=== PATIENT | male | born 1955 | race African-American/Black ===

== ENCOUNTER 2019-12-19 11:55 | Inpatient (IN) ==
[2019-12-19 13:10] LABS: Basophils # 0.1 10*3/uL (0.0-0.2); Basophils % 0.6 % (0.0-0.8); Eosinophils # 0.1 10*3/uL (0.0-0.87); Eosinophils % 0.8 % (0.00-10.9); Hematocrit 32.7 VOL% (42.0-52.0); Hemoglobin 10.1 GM/DL (14.0-18.0); Immature Granulocytes % 0.6 %; Immature Granulocytes Absolute 0.07 #; Lymphocytes # 1.1 10*3/uL (1.4-4.0); Lymphocytes % 9.1 % (21.2-54.2); Mean Corpuscular HGB Conc 30.9 GM/DL (32-36); Mean Corpuscular Volume 90.3 FL (87-102); Mean Platelet Volume 10.2 FL (9.6-12.0); Monocytes % 8.3 % (1.7-12.7); Neutrophils % 80.6 % (38.7-73.9); Platelet Count 271 T/CUMM (130-400); Red Blood Count 3.62 MC/CUMM (3.8-5.5); Red Cell Distribution Width 15.8 % (9.3-17.3); White Blood Count 12.6 T/CUMM (4-12)
[2019-12-19 13:36] LABS: Albumin 3.5 G/DL (3.4-5.0); Bilirubin,Total 0.4 MG/DL (0.2-1.0); Calcium 8.9 MG/DL (8.5-10.1); Osmolality,Calculated 272.8 MOS/KG (273-304); Total Protein 9.7 G/DL (6.4-8.3)
[2019-12-19] MEDS ORDERED: BISACODYL 5 MG TABLET PO PRN (14:10)
[2019-12-19] MEDS ORDERED: guaiFENesin/DM ER 600-30 MG TABLET PO PRN (14:10)
[2019-12-19] MEDS ORDERED: DOCUSATE SODIUM 100 MG CAPSULE PO PRN (14:10)
[2019-12-19] MEDS ORDERED: DEXTROSE 50% 25 GM/50 ML VIAL IV PRN (14:10)
[2019-12-19] MEDS ORDERED: ACETAMINOPHEN 325 MG TABLET PO PRN (14:10)
[2019-12-19] MEDS ORDERED: GLUCAGON 1 MG VIAL IM PRN (14:10)
[2019-12-19] MEDS ORDERED: SIMETHICONE CHEW 125 MG TABLET PO PRN (14:10)
[2019-12-19] MEDS ORDERED: ONDANSETRON 4 MG/2 ML VIAL IV PRN (14:10)
[2019-12-19] MEDS ORDERED: CALCIUM CARBONATE CHEW 500 MG TABLET PO PRN (14:10)
[2019-12-19] MEDS ORDERED: ALUMINUM/MAGNES/SIMETH MAX STR 30 ML UDCUP PO PRN (14:10)
[2019-12-19] MEDS ORDERED: traZODone 50 MG TABLET PO PRN (14:10)
[2019-12-19] MEDS ORDERED: ZALEPLON 5 MG CAPSULE PO PRN (14:10)
[2019-12-19] MEDS ORDERED: LACTULOSE 20 GM/30 ML UDCUP PO PRN (14:10)
[2019-12-19] MEDS ORDERED: NICOTINE 21 MG/24 HR PATCH TRANSDERM PRN (14:10)
[2019-12-19] MEDS ORDERED: amLODIPine 5 MG TABLET PO STA ×2 (14:11→14:23)
[2019-12-19] MEDS ORDERED: amLODIPine 5 MG TABLET ONE (14:30)
[2019-12-19] MEDS ORDERED: CLINDAMYCIN INJ 50 ML IV ONE (14:31)
[2019-12-19] MEDS: CLINDAMYCIN INJ 600 MG in PREMIX 1 EACH IV SCH ×2 (15:04→20:45)
[2019-12-19] MEDS: ACYCLOVIR INJ 500 MG in SODIUM CHLORIDE 0.9% 100 ML IV SCH (16:57)
[2019-12-19] MEDS: SODIUM CHLORIDE 0.45% 1,000 ML IV SCH (16:57)
[2019-12-19] MEDS: hydrALAZINE 20 MG/1 ML VIAL IV PRN (16:59)
[2019-12-19 18:02] LABS: HIV Antigen/Antibody Result Nonreactive (Nonreactive)
[2019-12-19 18:05] LABS: Hepatitis B Core IgM Quant 0.15 Index; Hepatitis B Surface Ag Quant 0.31 Index; Hepatitis B Surface Ag Result Negative (Negative); Hepatitis C Virus Ab Quant 0.07 Index; Hepatitis C Virus Ab Result Negative (Negative)
[2019-12-19 19:36] LABS: Barbiturates Screen,Urine Negative (Negative); Benzodiazepines Screen,Urine Negative (Negative); Cannabinoid Screen,Urine Positive (Negative); Opiate Screen,Urine Negative (Negative); Phencyclidine Screen,Urine Negative (Negative)
[2019-12-19] MEDS: HEPARIN 5,000 UNIT/1 ML VIAL SUBCUT SCH (21:40)
[2019-12-20] MEDS: ACYCLOVIR INJ 500 MG in SODIUM CHLORIDE 0.9% 100 ML IV SCH ×3 (00:02→18:11)
[2019-12-20] MEDS: CLINDAMYCIN INJ 600 MG in PREMIX 1 EACH IV SCH ×4 (02:57→22:17)
[2019-12-20 05:33] LABS: Basophils # 0.1 10*3/uL (0.0-0.2); Basophils % 0.5 % (0.0-0.8); Eosinophils # 0.3 10*3/uL (0.0-0.87); Eosinophils % 2.3 % (0.00-10.9); Hematocrit 28.3 VOL% (42.0-52.0); Immature Granulocytes % 0.7 %; Immature Granulocytes Absolute 0.08 #; Lymphocytes # 1.4 10*3/uL (1.4-4.0); Lymphocytes % 12.3 % (21.2-54.2); Mean Corpuscular HGB Conc 31.8 GM/DL (32-36); Mean Corpuscular Volume 87.9 FL (87-102); Mean Platelet Volume 10.9 FL (9.6-12.0); Monocytes % 14.4 % (1.7-12.7); Neutrophils % 69.8 % (38.7-73.9); Platelet Count 221 T/CUMM (130-400); Red Blood Count 3.22 MC/CUMM (3.8-5.5); Red Cell Distribution Width 15.7 % (9.3-17.3); White Blood Count 11.1 T/CUMM (4-12)
[2019-12-20] MEDS: hydrALAZINE 20 MG/1 ML VIAL IV PRN (05:34)
[2019-12-20] MEDS: HEPARIN 5,000 UNIT/1 ML VIAL SUBCUT SCH ×3 (05:35→22:18)
[2019-12-20 06:04] LABS: Alanine Aminotransferase 13 U/L (16-61); Albumin 2.8 G/DL (3.4-5.0); Alkaline Phosphatase 103 U/L (45-117); Aspartate Amino Transferase 17 U/L (0-37); Bilirubin,Total < 0.39 MG/DL (0.2-1.0); Blood Urea Nitrogen 21 MG/DL (7-18); Calcium 8.3 MG/DL (8.5-10.1); Estimated Glom Filtration Rate 55 ML/MIN; Glucose 85 MG/DL (74-106); Osmolality,Calculated 271.1 MOS/KG (273-304)
[2019-12-20 06:05] LABS: Risk Ratio 1.59; VLDL CHOLESTEROL 18.2 MG/DL
[2019-12-20] MEDS: SODIUM CHLORIDE 0.45% 1,000 ML IV SCH ×3 (06:30→22:15)
[2019-12-20] MEDS ORDERED: amLODIPine 5 MG TABLET PO SCH (09:00)
[2019-12-20] MEDS ORDERED: amLODIPine 10 MG TABLET PO SCH (09:00)
[2019-12-20] MEDS: PANTOPRAZOLE 40 MG TABLET PO SCH (09:22)
[2019-12-20] MEDS: LISINOPRIL/HCTZ 20-12.5 MG TABLET PO SCH (09:22)
[2019-12-20] MEDS: diphenhydrAMINE CAP 25 MG CAPSULE PO PRN (22:17)
[2019-12-21] MEDS: CLINDAMYCIN INJ 600 MG in PREMIX 1 EACH IV SCH ×4 (02:05→21:18)
[2019-12-21] MEDS: ACYCLOVIR INJ 500 MG in SODIUM CHLORIDE 0.9% 100 ML IV SCH ×3 (02:58→17:49)
[2019-12-21 05:17] LABS: Basophils % 0.4 % (0.0-0.8); Eosinophils # 0.3 10*3/uL (0.0-0.87); Eosinophils % 2.7 % (0.00-10.9); Hemoglobin 8.6 GM/DL (14.0-18.0); Immature Granulocytes % 0.5 %; Immature Granulocytes Absolute 0.05 #; Lymphocytes # 1.6 10*3/uL (1.4-4.0); Lymphocytes % 15.9 % (21.2-54.2); Mean Corpuscular HGB Conc 31.9 GM/DL (32-36); Mean Corpuscular Volume 87.9 FL (87-102); Mean Platelet Volume 10.3 FL (9.6-12.0); Monocytes % 13.9 % (1.7-12.7); Neutrophils % 66.6 % (38.7-73.9); Platelet Count 225 T/CUMM (130-400); Red Blood Count 3.07 MC/CUMM (3.8-5.5); Red Cell Distribution Width 15.6 % (9.3-17.3); White Blood Count 9.8 T/CUMM (4-12)
[2019-12-21 05:40] LABS: Albumin 2.8 G/DL (3.4-5.0); Bilirubin,Total 1.6 MG/DL (0.2-1.0); Calcium 8.2 MG/DL (8.5-10.1); Osmolality,Calculated 271.1 MOS/KG (273-304); Total Protein 7.8 G/DL (6.4-8.3)
[2019-12-21] MEDS: HEPARIN 5,000 UNIT/1 ML VIAL SUBCUT SCH ×3 (06:12→21:21)
[2019-12-21] MEDS: PANTOPRAZOLE 40 MG TABLET PO SCH (09:12)
[2019-12-21] MEDS: LISINOPRIL/HCTZ 20-12.5 MG TABLET PO SCH (09:12)
[2019-12-21] MEDS: SODIUM CHLORIDE 0.45% 1,000 ML IV SCH (12:26)
[2019-12-22] MEDS: diphenhydrAMINE CAP 25 MG CAPSULE PO PRN (00:57)
[2019-12-22] MEDS: SODIUM CHLORIDE 0.45% 1,000 ML IV SCH (02:00)
[2019-12-22] MEDS: CLINDAMYCIN INJ 600 MG in PREMIX 1 EACH IV SCH ×2 (03:34→12:47)
[2019-12-22] MEDS: ACYCLOVIR INJ 500 MG in SODIUM CHLORIDE 0.9% 100 ML IV SCH (04:30)
[2019-12-22 05:46] LABS: Basophils % 0.3 % (0.0-0.8); Eosinophils # 0.3 10*3/uL (0.0-0.87); Eosinophils % 2.9 % (0.00-10.9); Hematocrit 30.5 VOL% (42.0-52.0); Hemoglobin 9.9 GM/DL (14.0-18.0); Immature Granulocytes % 0.7 %; Immature Granulocytes Absolute 0.06 #; Lymphocytes # 1.6 10*3/uL (1.4-4.0); Lymphocytes % 18.9 % (21.2-54.2); Mean Corpuscular HGB Conc 32.5 GM/DL (32-36); Mean Corpuscular Volume 86.6 FL (87-102); Mean Platelet Volume 9.9 FL (9.6-12.0); Monocytes % 11.6 % (1.7-12.7); Neutrophils % 65.6 % (38.7-73.9); Platelet Count 246 T/CUMM (130-400); Red Blood Count 3.52 MC/CUMM (3.8-5.5); Red Cell Distribution Width 15.8 % (9.3-17.3); White Blood Count 8.7 T/CUMM (4-12)
[2019-12-22 06:06] LABS: Calcium 8.7 MG/DL (8.5-10.1)
[2019-12-22 06:07] LABS: Albumin 3.1 G/DL (3.4-5.0); Bilirubin,Total 0.6 MG/DL (0.2-1.0); Osmolality,Calculated 269.1 MOS/KG (273-304); Total Protein 8.7 G/DL (6.4-8.3)
[2019-12-22] MEDS: HEPARIN 5,000 UNIT/1 ML VIAL SUBCUT SCH (06:42)
[2019-12-22] MEDS: PANTOPRAZOLE 40 MG TABLET PO SCH (09:27)
[2019-12-22] MEDS: LISINOPRIL/HCTZ 20-12.5 MG TABLET PO SCH (09:28)
[2019-12-22 09:51] LABS: RPR Confirm - Less than 1 yr NONREACTIVE (Nonreactive)
[2019-12-22 11:28] VITALS: BP 154/97
== END 2019-12-22 12:08 | disposition home or self-care (01) | DRG 603 ==
LOC: N.ED 11:55 → N.EDINP 14:32 → SUATTDRO 14:32 → N.3E 15:25
PROVIDERS: ADMIT Family Medicine; ATTEND Internal Medicine

== ENCOUNTER 2020-08-16 09:28 | Inpatient (IN) ==
[2020-08-16] MEDS ORDERED: CLINDAMYCIN INJ 900 MG in PREMIX 1 EACH IV STA (11:36)
[2020-08-16] MEDS ORDERED: CLINDAMYCIN INJ 600 MG in PREMIX 1 EACH IV STA (11:37)
[2020-08-16 11:40] LABS: Basophils # 0.1 10*3/uL (0.0-0.2); Basophils % 0.7 % (0.0-0.8); Eosinophils # 0.3 10*3/uL (0.0-0.87); Eosinophils % 2.2 % (0.00-10.9); Hematocrit 36.1 VOL% (42.0-52.0); Hemoglobin 11.2 GM/DL (14.0-18.0); Immature Granulocytes % 0.4 %; Immature Granulocytes Absolute 0.05 #; Lymphocytes % 8.6 % (21.2-54.2); Mean Corpuscular Volume 91.9 FL (87-102); Mean Platelet Volume 11.6 FL (9.6-12.0); Monocytes % 9.9 % (1.7-12.7); Neutrophils % 78.2 % (38.7-73.9); Platelet Count 240 T/CUMM (130-400); Red Blood Count 3.93 MC/CUMM (3.8-5.5); Red Cell Distribution Width 18.9 % (9.3-17.3); White Blood Count 11.2 T/CUMM (4-12)
[2020-08-16 11:57] LABS: Hypochromasia 1+
[2020-08-16 11:58] LABS: Anisocytosis 1+; Microcytosis 1+; Platelet Estimate Normal
[2020-08-16 12:03] LABS: Bilirubin,Total 1.1 MG/DL (0.2-1.0); Calcium 8.8 MG/DL (8.5-10.1); Potassium 4.1 MMOL/L (3.5-5.1); Total Protein 9.4 G/DL (5.0-7.5)
[2020-08-16] MEDS ORDERED: GLUCAGON 1 MG VIAL IM PRN (12:37)
[2020-08-16] MEDS ORDERED: LORazepam 2 MG/1 ML VIAL IV PRN (12:37)
[2020-08-16] MEDS ORDERED: NICOTINE 21 MG/24 HR PATCH TRANSDERM PRN (12:37)
[2020-08-16] MEDS ORDERED: DEXTROSE 50% 25 GM/50 ML VIAL IV PRN (12:37)
[2020-08-16] MEDS ORDERED: cefTRIAXone 1,000 MG in SYRINGE 1 EACH IV SCH (13:00)
[2020-08-16] MEDS: SODIUM CHLORIDE 0.9% 1,000 ML IV SCH (13:19)
[2020-08-16] MEDS: amLODIPine 10 MG TABLET PO SCH (13:51)
[2020-08-16] MEDS: oxyCODONE/ACETAMINOPHEN 5-325 MG TABLET PO PRN (15:46)
[2020-08-16] MEDS: hydrALAZINE 20 MG/1 ML VIAL IV PRN (15:48)
[2020-08-16] MEDS: MORPHINE 4 MG/1 ML VIAL IV PRN (18:21)
[2020-08-17] MEDS: MORPHINE 4 MG/1 ML VIAL IV PRN (02:44)
[2020-08-17 03:57] LABS: Basophils # 0.1 10*3/uL (0.0-0.2); Basophils % 0.6 % (0.0-0.8); Eosinophils # 0.5 10*3/uL (0.0-0.87); Eosinophils % 4.6 % (0.00-10.9); Hematocrit 29.6 VOL% (42.0-52.0); Hemoglobin 9.3 GM/DL (14.0-18.0); Immature Granulocytes % 0.4 %; Immature Granulocytes Absolute 0.04 #; Lymphocytes # 0.9 10*3/uL (1.4-4.0); Lymphocytes % 9.3 % (21.2-54.2); Mean Corpuscular HGB Conc 31.4 GM/DL (32-36); Monocytes % 12.4 % (1.7-12.7); Neutrophils % 72.7 % (38.7-73.9); Platelet Count 228 T/CUMM (130-400); Red Blood Count 3.29 MC/CUMM (3.8-5.5); Red Cell Distribution Width 19.1 % (9.3-17.3); White Blood Count 10.1 T/CUMM (4-12)
[2020-08-17 04:18] LABS: Albumin 2.4 G/DL (3.4-5.0); Bilirubin,Total 0.9 MG/DL (0.2-1.0); Osmolality,Calculated 277.7 MOS/KG (273-304); Potassium 3.8 MMOL/L (3.5-5.1); Total Protein 7.4 G/DL (5.0-7.5)
[2020-08-17] MEDS: SODIUM CHLORIDE 0.9% 1,000 ML IV SCH ×2 (05:37→17:24)
[2020-08-17] MEDS: MULTIVITAMIN (CENTRUM) TABLET PO SCH (09:45)
[2020-08-17] MEDS: PANTOPRAZOLE 40 MG TABLET PO SCH (09:45)
[2020-08-17] MEDS: FOLIC ACID 0.4 MG TABLET PO SCH (09:45)
[2020-08-17] MEDS: amLODIPine 10 MG TABLET PO SCH (09:46)
[2020-08-17] MEDS: THIAMINE 100 MG TABLET PO SCH (09:46)
[2020-08-17] MEDS: oxyCODONE/ACETAMINOPHEN 5-325 MG TABLET PO PRN ×3 (09:46→23:35)
[2020-08-17] MEDS: hydrALAZINE 20 MG/1 ML VIAL IV PRN ×2 (09:49→17:24)
[2020-08-17] MEDS: ceFAZolin 1,000 MG in SYRINGE 1 EACH IV SCH ×2 (09:58→17:22)
[2020-08-17] MEDS: carvediloL 6.25 MG TABLET PO SCH ×2 (13:46→20:47)
[2020-08-18] MEDS: ceFAZolin 1,000 MG in SYRINGE 1 EACH IV SCH ×3 (02:15→17:24)
[2020-08-18] MEDS: hydrALAZINE 20 MG/1 ML VIAL IV PRN ×2 (02:17→23:56)
[2020-08-18] MEDS: SODIUM CHLORIDE 0.9% 1,000 ML IV SCH ×2 (06:07→18:01)
[2020-08-18 06:16] LABS: Basophils # 0.1 10*3/uL (0.0-0.2); Basophils % 0.5 % (0.0-0.8); Eosinophils # 0.6 10*3/uL (0.0-0.87); Eosinophils % 6.1 % (0.00-10.9); Hemoglobin 8.5 GM/DL (14.0-18.0); Immature Granulocytes % 0.6 %; Immature Granulocytes Absolute 0.06 #; Lymphocytes # 1.3 10*3/uL (1.4-4.0); Lymphocytes % 13.2 % (21.2-54.2); Mean Corpuscular HGB Conc 31.5 GM/DL (32-36); Mean Platelet Volume 11.1 FL (9.6-12.0); Monocytes % 16.6 % (1.7-12.7); Platelet Count 215 T/CUMM (130-400); Red Cell Distribution Width 19.5 % (9.3-17.3); White Blood Count 10.1 T/CUMM (4-12)
[2020-08-18 06:18] LABS: Total Protein (Chem) 7.5 G/DL (6.4-8.3)
[2020-08-18 06:22] LABS: Albumin 2.3 G/DL (3.4-5.0); Bilirubin,Total 0.5 MG/DL (0.2-1.0); Osmolality,Calculated 278.4 MOS/KG (273-304); Total Protein 7.1 G/DL (5.0-7.5)
[2020-08-18 06:42] LABS: Eosinophils 7 % (0-10); Hypochromasia 1+; Lymphocytes 11 % (20-55); Microcytosis 1+; Platelet Estimate Adequate; Segmented Neutrophils 70 % (50-85); Total Cells Counted 100
[2020-08-18 08:32] LABS: Albumin (SPE) Rel % 48.5 %; Alpha 1 (SPE) Rel % 3.1 %; Alpha 2 (SPE) Rel % 10.1 %; Beta (SPE) Rel % 10.2 %; Gamma (SPE) Rel % 28.1 %
[2020-08-18 08:42] LABS: Albumin (SPE) 3.6 G/DL (3.2-5.3); Alpha 1 (SPE) 0.2 G/DL (0.1-0.4)
[2020-08-18 08:43] LABS: Alpha 2 (SPE) 0.8 G/DL (0.4-1.0); Beta (SPE) 0.8 G/DL (0.5-1.1); Gamma (SPE) 2.1 G/DL (0.7-1.7)
[2020-08-18 08:58] LABS: % Iron Saturation 5.9 % (18-50)
[2020-08-18 09:01] LABS: INR 1.1; PT Patient Result 11.9 SECS (9.8-11.9); Partial Thromboplastin Time 30.8 SECS (23.9-33.8)
[2020-08-18] MEDS: FOLIC ACID 0.4 MG TABLET PO SCH (09:07)
[2020-08-18] MEDS: THIAMINE 100 MG TABLET PO SCH (09:07)
[2020-08-18] MEDS: PANTOPRAZOLE 40 MG TABLET PO SCH (09:09)
[2020-08-18] MEDS: carvediloL 6.25 MG TABLET PO SCH ×2 (09:09→21:14)
[2020-08-18] MEDS: amLODIPine 10 MG TABLET PO SCH (09:09)
[2020-08-18] MEDS: MULTIVITAMIN (CENTRUM) TABLET PO SCH (09:10)
[2020-08-18 09:22] LABS: RPR Confirm - Less than 1 yr NONREACTIVE (Nonreactive)
[2020-08-18 09:27] LABS: Folate 14.8 NG/ML (5.38-24.0)
[2020-08-18 10:01] LABS: Hepatitis B Core IgM Quant < 0.05 Index; Hepatitis B Surface Ag Quant < 0.10 Index; Hepatitis B Surface Ag Result Non-Reactive (NonReactive); Hepatitis C Virus Ab Quant 0.19 Index; Hepatitis C Virus Ab Result Non-Reactive (NonReactive)
[2020-08-18 12:36] LABS: Barbiturates Screen,Urine Negative (Negative); Benzodiazepines Screen,Urine Negative (Negative); Cannabinoid Screen,Urine Positive (Negative); Opiate Screen,Urine Positive (Negative); Phencyclidine Screen,Urine Negative (Negative)
[2020-08-18 14:14] LABS: Total Volume,Urine 1600 ML (400-2000)
[2020-08-18 14:18] LABS: Total Protein 24 Hr Ur Result 928 MG/24HR (0-149.1)
[2020-08-18] MEDS: FERROUS SULFATE 325 MG TABLET PO SCH (21:14)
[2020-08-18] MEDS: oxyCODONE/ACETAMINOPHEN 5-325 MG TABLET PO PRN (21:22)
[2020-08-19] MEDS: MORPHINE 4 MG/1 ML VIAL IV PRN (01:41)
[2020-08-19] MEDS: ceFAZolin 1,000 MG in SYRINGE 1 EACH IV SCH ×3 (03:00→17:06)
[2020-08-19 06:14] LABS: Basophils # 0.1 10*3/uL (0.0-0.2); Basophils % 0.8 % (0.0-0.8); Eosinophils # 0.5 10*3/uL (0.0-0.87); Hematocrit 27.1 VOL% (42.0-52.0); Hemoglobin 8.5 GM/DL (14.0-18.0); Immature Granulocytes % 0.4 %; Immature Granulocytes Absolute 0.04 #; Lymphocytes # 1.3 10*3/uL (1.4-4.0); Lymphocytes % 15.1 % (21.2-54.2); Mean Corpuscular HGB Conc 31.4 GM/DL (32-36); Mean Platelet Volume 11.2 FL (9.6-12.0); Monocytes % 16.1 % (1.7-12.7); Neutrophils % 61.6 % (38.7-73.9); Platelet Count 233 T/CUMM (130-400); Red Blood Count 3.01 MC/CUMM (3.8-5.5); Red Cell Distribution Width 19.1 % (9.3-17.3); White Blood Count 8.9 T/CUMM (4-12)
[2020-08-19 06:17] LABS: INR 1.1; PT Patient Result 11.4 SECS (9.8-11.9)
[2020-08-19 06:24] LABS: 24 Hr Protein (Bench) 928 MG/24HR (0-149.1)
[2020-08-19 06:33] LABS: Albumin 2.4 G/DL (3.4-5.0); Bilirubin,Total 0.6 MG/DL (0.2-1.0); Calcium 8.4 MG/DL (8.5-10.1); Osmolality,Calculated 269.8 MOS/KG (273-304); Potassium 3.4 MMOL/L (3.5-5.1); Total Protein 7.5 G/DL (5.0-7.5)
[2020-08-19 06:42] LABS: Eosinophils 8 % (0-10); Lymphocytes 14 % (20-55); Platelet Estimate Adequate; Segmented Neutrophils 66 % (50-85); Total Cells Counted 100
[2020-08-19 06:43] LABS: Hypochromasia 1+; Microcytosis 1+
[2020-08-19] MEDS: amLODIPine 10 MG TABLET PO SCH (08:26)
[2020-08-19] MEDS: PANTOPRAZOLE 40 MG TABLET PO SCH (08:26)
[2020-08-19] MEDS: FOLIC ACID 0.4 MG TABLET PO SCH (08:26)
[2020-08-19] MEDS: carvediloL 6.25 MG TABLET PO SCH ×2 (08:26→21:07)
[2020-08-19] MEDS: FERROUS SULFATE 325 MG TABLET PO SCH ×2 (08:26→21:06)
[2020-08-19] MEDS: THIAMINE 100 MG TABLET PO SCH (08:26)
[2020-08-19] MEDS: MULTIVITAMIN (CENTRUM) TABLET PO SCH (08:27)
[2020-08-19] MEDS: SODIUM CHLORIDE 0.9% 1,000 ML IV SCH (09:37)
[2020-08-19] MEDS: POTASSIUM CHLORIDE 20 MEQ TABLET PO PRN ×3 (09:38→13:36)
[2020-08-19] MEDS: ceFAZolin 1,000 MG in SYRINGE 1 EACH IV ONE (09:39)
[2020-08-19] MEDS: oxyCODONE/ACETAMINOPHEN 5-325 MG TABLET PO PRN (21:07)
[2020-08-20] MEDS: ceFAZolin 1,000 MG in SYRINGE 1 EACH IV SCH ×3 (02:47→17:41)
[2020-08-20] MEDS: SODIUM CHLORIDE 0.9% 1,000 ML IV SCH ×3 (02:48→23:16)
[2020-08-20 04:16] LABS: Basophils # 0.1 10*3/uL (0.0-0.2); Basophils % 0.8 % (0.0-0.8); Eosinophils # 0.5 10*3/uL (0.0-0.87); Eosinophils % 6.7 % (0.00-10.9); Hematocrit 26.7 VOL% (42.0-52.0); Hemoglobin 8.4 GM/DL (14.0-18.0); Immature Granulocytes % 0.5 %; Immature Granulocytes Absolute 0.04 #; Lymphocytes # 1.6 10*3/uL (1.4-4.0); Lymphocytes % 21.5 % (21.2-54.2); Mean Corpuscular HGB Conc 31.5 GM/DL (32-36); Mean Corpuscular Volume 89.3 FL (87-102); Mean Platelet Volume 11.1 FL (9.6-12.0); Monocytes % 19.9 % (1.7-12.7); Neutrophils % 50.6 % (38.7-73.9); Platelet Count 226 T/CUMM (130-400); Red Blood Count 2.99 MC/CUMM (3.8-5.5); Red Cell Distribution Width 18.6 % (9.3-17.3); White Blood Count 7.5 T/CUMM (4-12)
[2020-08-20 04:43] LABS: Albumin 2.5 G/DL (3.4-5.0); Bilirubin,Total 0.6 MG/DL (0.2-1.0); Calcium 8.5 MG/DL (8.5-10.1); Osmolality,Calculated 277.4 MOS/KG (273-304); Total Protein 7.4 G/DL (5.0-7.5)
[2020-08-20 05:21] LABS: Eosinophils 5 % (0-10); Hypochromasia 1+; Lymphocytes 25 % (20-55); Microcytosis 1+; Segmented Neutrophils 52 % (50-85); Total Cells Counted 100
[2020-08-20 05:22] LABS: Anisocytosis 1+; Target Cells Slight
[2020-08-20] MEDS: carvediloL 6.25 MG TABLET PO SCH ×3 (06:10→21:13)
[2020-08-20] MEDS ORDERED: LIDOCAINE 1% 20 ML VIAL ONE (06:15)
[2020-08-20] MEDS ORDERED: ROPIVACAINE 0.5% 30 ML VIAL ONE (06:15)
[2020-08-20] MEDS ORDERED: BACITRACIN OINT 0.9 GM PACK TOP ONE (06:15)
[2020-08-20] MEDS ORDERED: fentaNYL 100 MCG/2 ML VIAL ONE (06:30)
[2020-08-20] MEDS ORDERED: LIDOCAINE 2% 5 ML VIAL ONE (06:31)
[2020-08-20] MEDS ORDERED: propofoL 200 MG/20 ML VIAL IV ONE (06:31)
[2020-08-20] MEDS ORDERED: ONDANSETRON 4 MG/2 ML VIAL ONE (06:31)
[2020-08-20] MEDS ORDERED: MIDAZOLAM 2 MG/2 ML VIAL ONE (06:45)
[2020-08-20] MEDS ORDERED: ceFAZolin 1,000 MG in SYRINGE 1 EACH IV ONE (07:30)
[2020-08-20] MEDS: ceFAZolin 1,000 MG in SYRINGE 1 EACH IV ONE (08:31)
[2020-08-20] MEDS: FOLIC ACID 0.4 MG TABLET PO SCH (10:36)
[2020-08-20] MEDS: THIAMINE 100 MG TABLET PO SCH (10:36)
[2020-08-20] MEDS: PANTOPRAZOLE 40 MG TABLET PO SCH (10:36)
[2020-08-20] MEDS: FERROUS SULFATE 325 MG TABLET PO SCH ×2 (10:36→21:13)
[2020-08-20] MEDS: MULTIVITAMIN (CENTRUM) TABLET PO SCH (10:37)
[2020-08-20] MEDS: amLODIPine 10 MG TABLET PO SCH (10:37)
[2020-08-20 11:24] LABS: EBV Nuclear Ag Antibody Positive (Negative); EBV Virus IgG Ab Positive (Negative); EBV Virus IgM Ab Negative (Negative); Varicella IgG Index 1.3
[2020-08-20 13:06] LABS: Smooth Muscle Antibody Negative (Negative)
[2020-08-20] MEDS: oxyCODONE/ACETAMINOPHEN 5-325 MG TABLET PO PRN ×2 (14:33→21:13)
[2020-08-21] MEDS: ceFAZolin 1,000 MG in SYRINGE 1 EACH IV SCH ×3 (03:01→17:14)
[2020-08-21 05:43] LABS: Basophils # 0.1 10*3/uL (0.0-0.2); Basophils % 0.6 % (0.0-0.8); Eosinophils # 0.6 10*3/uL (0.0-0.87); Hemoglobin 8.3 GM/DL (14.0-18.0); Immature Granulocytes % 0.4 %; Immature Granulocytes Absolute 0.03 #; Lymphocytes # 1.6 10*3/uL (1.4-4.0); Lymphocytes % 19.6 % (21.2-54.2); Mean Corpuscular HGB Conc 31.9 GM/DL (32-36); Mean Platelet Volume 10.1 FL (9.6-12.0); Monocytes % 15.3 % (1.7-12.7); Neutrophils % 57.1 % (38.7-73.9); Platelet Count 204 T/CUMM (130-400); Red Blood Count 2.92 MC/CUMM (3.8-5.5); Red Cell Distribution Width 18.6 % (9.3-17.3)
[2020-08-21 05:59] LABS: Albumin 2.5 G/DL (3.4-5.0); Bilirubin,Direct 0.22 MG/DL (0.0-0.20); Bilirubin,Indirect 0.2 MG/DL (0.0-1.0); Bilirubin,Total 0.4 MG/DL (0.2-1.0); Total Protein 7.6 G/DL (5.0-7.5)
[2020-08-21 06:05] LABS: Hypochromasia 1+; Microcytosis 1+; Platelet Estimate Adequate
[2020-08-21 06:11] LABS: Calcium 8.3 MG/DL (8.5-10.1); Osmolality,Calculated 270.8 MOS/KG (273-304); Potassium 3.7 MMOL/L (3.5-5.1)
[2020-08-21] MEDS: FOLIC ACID 0.4 MG TABLET PO SCH (10:47)
[2020-08-21] MEDS: PANTOPRAZOLE 40 MG TABLET PO SCH (10:48)
[2020-08-21] MEDS: THIAMINE 100 MG TABLET PO SCH (10:48)
[2020-08-21] MEDS: FERROUS SULFATE 325 MG TABLET PO SCH ×2 (10:48→20:53)
[2020-08-21] MEDS: carvediloL 6.25 MG TABLET PO SCH ×2 (10:48→20:53)
[2020-08-21] MEDS: MULTIVITAMIN (CENTRUM) TABLET PO SCH (10:48)
[2020-08-21] MEDS: amLODIPine 10 MG TABLET PO SCH (10:48)
[2020-08-21] MEDS: oxyCODONE/ACETAMINOPHEN 5-325 MG TABLET PO PRN ×2 (14:59→20:54)
[2020-08-21] MEDS: SODIUM CHLORIDE 0.9% 1,000 ML IV SCH (15:00)
[2020-08-21] MEDS: hydrALAZINE 20 MG/1 ML VIAL IV PRN (19:14)
[2020-08-22] MEDS: ceFAZolin 1,000 MG in SYRINGE 1 EACH IV SCH (02:55)
[2020-08-22] MEDS: SODIUM CHLORIDE 0.9% 1,000 ML IV SCH ×2 (03:00→15:25)
[2020-08-22] MEDS ORDERED: carvediloL 6.25 MG TABLET PO ONE (10:20)
[2020-08-22] MEDS: amLODIPine 10 MG TABLET PO SCH (10:47)
[2020-08-22] MEDS: MULTIVITAMIN (CENTRUM) TABLET PO SCH (10:47)
[2020-08-22] MEDS: THIAMINE 100 MG TABLET PO SCH (10:47)
[2020-08-22] MEDS: PANTOPRAZOLE 40 MG TABLET PO SCH (10:47)
[2020-08-22] MEDS: FERROUS SULFATE 325 MG TABLET PO SCH ×2 (10:47→20:33)
[2020-08-22] MEDS: FOLIC ACID 0.4 MG TABLET PO SCH (10:47)
[2020-08-22] MEDS: ERTAPENEM 1,000 MG in SODIUM CHLORIDE 0.9% 100 ML IV SCH (10:50)
[2020-08-22] MEDS: hydrALAZINE 20 MG/1 ML VIAL IV PRN (10:50)
[2020-08-22] MEDS: LOSARTAN 25 MG TABLET PO SCH (10:51)
[2020-08-22] MEDS: oxyCODONE/ACETAMINOPHEN 5-325 MG TABLET PO PRN ×2 (10:57→20:34)
[2020-08-22 11:21] LABS: Antinuclear Ab, S 0.2 U
[2020-08-22] MEDS: carvediloL 6.25 MG TABLET PO SCH (11:26)
[2020-08-22] MEDS: carvediloL 12.5 MG TABLET PO SCH (20:33)
[2020-08-23] MEDS: SODIUM CHLORIDE 0.9% 1,000 ML IV SCH ×2 (04:47→17:52)
[2020-08-23 05:03] LABS: Basophils # 0.1 10*3/uL (0.0-0.2); Basophils % 0.8 % (0.0-0.8); Eosinophils # 0.5 10*3/uL (0.0-0.87); Eosinophils % 5.7 % (0.00-10.9); Hematocrit 26.8 VOL% (42.0-52.0); Hemoglobin 8.6 GM/DL (14.0-18.0); Immature Granulocytes % 0.2 %; Immature Granulocytes Absolute 0.02 #; Lymphocytes % 22.4 % (21.2-54.2); Mean Corpuscular HGB Conc 32.1 GM/DL (32-36); Mean Platelet Volume 10.4 FL (9.6-12.0); Monocytes % 16.8 % (1.7-12.7); Neutrophils % 54.1 % (38.7-73.9); Platelet Count 249 T/CUMM (130-400); Red Blood Count 3.01 MC/CUMM (3.8-5.5); Red Cell Distribution Width 18.2 % (9.3-17.3); White Blood Count 9.1 T/CUMM (4-12)
[2020-08-23 05:23] LABS: Eosinophils 11 % (0-10); Hypochromasia 1+; Lymphocytes 20 % (20-55); Microcytosis 1+; Platelet Estimate Adequate; Segmented Neutrophils 52 % (50-85); Total Cells Counted 100
[2020-08-23 05:34] LABS: Calcium 8.6 MG/DL (8.5-10.1); Osmolality,Calculated 272.8 MOS/KG (273-304); Potassium 3.6 MMOL/L (3.5-5.1)
[2020-08-23 09:02] LABS: Alanine Aminotransferase 138 U/L (16-61); Albumin 2.8 G/DL (3.4-5.0); Alkaline Phosphatase 145 U/L (45-117); Aspartate Amino Transferase 34 U/L (0-37); Bilirubin,Indirect 0.2 MG/DL (0.0-1.0); Bilirubin,Total < 0.39 MG/DL (0.2-1.0); Total Protein 8.1 G/DL (5.0-7.5)
[2020-08-23] MEDS: LOSARTAN 25 MG TABLET PO SCH (09:26)
[2020-08-23] MEDS: MULTIVITAMIN (CENTRUM) TABLET PO SCH (09:26)
[2020-08-23] MEDS: THIAMINE 100 MG TABLET PO SCH (09:26)
[2020-08-23] MEDS: FERROUS SULFATE 325 MG TABLET PO SCH ×2 (09:26→21:12)
[2020-08-23] MEDS: carvediloL 12.5 MG TABLET PO SCH ×2 (09:26→21:12)
[2020-08-23] MEDS: amLODIPine 10 MG TABLET PO SCH (09:26)
[2020-08-23] MEDS: FOLIC ACID 0.4 MG TABLET PO SCH (09:26)
[2020-08-23] MEDS: PANTOPRAZOLE 40 MG TABLET PO SCH (09:26)
[2020-08-23] MEDS ORDERED: LOSARTAN 25 MG TABLET PO ONE (10:00)
[2020-08-23] MEDS: ERTAPENEM 1,000 MG in SODIUM CHLORIDE 0.9% 100 ML IV SCH (10:13)
[2020-08-23] MEDS: oxyCODONE/ACETAMINOPHEN 5-325 MG TABLET PO PRN (22:48)
[2020-08-24 06:03] LABS: Basophils # 0.1 10*3/uL (0.0-0.2); Eosinophils # 0.5 10*3/uL (0.0-0.87); Eosinophils % 5.8 % (0.00-10.9); Hematocrit 29.3 VOL% (42.0-52.0); Hemoglobin 9.1 GM/DL (14.0-18.0); Immature Granulocytes % 0.2 %; Immature Granulocytes Absolute 0.02 #; Lymphocytes # 2.1 10*3/uL (1.4-4.0); Lymphocytes % 25.4 % (21.2-54.2); Mean Corpuscular HGB Conc 31.1 GM/DL (32-36); Mean Corpuscular Volume 90.2 FL (87-102); Mean Platelet Volume 10.6 FL (9.6-12.0); Monocytes % 14.1 % (1.7-12.7); Neutrophils % 53.5 % (38.7-73.9); Platelet Count 313 T/CUMM (130-400); Red Blood Count 3.25 MC/CUMM (3.8-5.5); White Blood Count 8.3 T/CUMM (4-12)
[2020-08-24 06:23] LABS: Hypochromasia 1+; Microcytosis 1+; Platelet Estimate Adequate
[2020-08-24 06:26] LABS: Calcium 8.4 MG/DL (8.5-10.1); Osmolality,Calculated 273.8 MOS/KG (273-304)
[2020-08-24 06:29] LABS: Alanine Aminotransferase 74 U/L (16-61); Albumin 2.8 G/DL (3.4-5.0); Alkaline Phosphatase 154 U/L (45-117); Aspartate Amino Transferase 29 U/L (0-37); Bilirubin,Indirect 0.2 MG/DL (0.0-1.0); Bilirubin,Total < 0.39 MG/DL (0.2-1.0); Total Protein 8.6 G/DL (6.4-8.2)
[2020-08-24] MEDS: LACTATED RINGERS 1,000 ML IV SCH (08:21)
[2020-08-24] MEDS ORDERED: LIDOCAINE 2% 5 ML VIAL ONE (09:24)
[2020-08-24] MEDS ORDERED: propofoL 200 MG/20 ML VIAL IV ONE (09:24)
[2020-08-24] MEDS: ERTAPENEM 1,000 MG in SODIUM CHLORIDE 0.9% 100 ML IV SCH (11:27)
[2020-08-24] MEDS: MULTIVITAMIN (CENTRUM) TABLET PO SCH (11:29)
[2020-08-24] MEDS: FOLIC ACID 0.4 MG TABLET PO SCH (11:29)
[2020-08-24] MEDS: THIAMINE 100 MG TABLET PO SCH (11:29)
[2020-08-24] MEDS: PANTOPRAZOLE 40 MG TABLET PO SCH (11:29)
[2020-08-24] MEDS: carvediloL 12.5 MG TABLET PO SCH ×2 (11:30→20:24)
[2020-08-24] MEDS: LOSARTAN 50 MG TABLET PO SCH (11:30)
[2020-08-24] MEDS: amLODIPine 10 MG TABLET PO SCH (11:30)
[2020-08-24] MEDS: FERROUS SULFATE 325 MG TABLET PO SCH ×2 (14:21→16:20)
[2020-08-24] MEDS: SODIUM CHLORIDE 0.9% 1,000 ML IV SCH (14:23)
[2020-08-25 04:36] LABS: Basophils # 0.1 10*3/uL (0.0-0.2); Basophils % 0.8 % (0.0-0.8); Eosinophils # 0.4 10*3/uL (0.0-0.87); Eosinophils % 4.2 % (0.00-10.9); Hematocrit 27.8 VOL% (42.0-52.0); Hemoglobin 8.8 GM/DL (14.0-18.0); Immature Granulocytes % 0.3 %; Immature Granulocytes Absolute 0.03 #; Lymphocytes # 1.7 10*3/uL (1.4-4.0); Lymphocytes % 19.1 % (21.2-54.2); Mean Corpuscular HGB Conc 31.7 GM/DL (32-36); Mean Corpuscular Volume 88.5 FL (87-102); Mean Platelet Volume 10.9 FL (9.6-12.0); Monocytes % 14.1 % (1.7-12.7); Neutrophils % 61.5 % (38.7-73.9); Platelet Count 273 T/CUMM (130-400); Red Blood Count 3.14 MC/CUMM (3.8-5.5); Red Cell Distribution Width 18.2 % (9.3-17.3); White Blood Count 8.8 T/CUMM (4-12)
[2020-08-25 04:55] LABS: Hypochromasia 1+; Microcytosis 1+; Platelet Estimate Adequate
[2020-08-25 04:55] LABS: Calcium 8.5 MG/DL (8.5-10.1); Osmolality,Calculated 278.5 MOS/KG (273-304); Potassium 3.9 MMOL/L (3.5-5.1)
[2020-08-25] MEDS: LACTATED RINGERS 1,000 ML IV SCH (08:50)
[2020-08-25] MEDS: oxyCODONE/ACETAMINOPHEN 5-325 MG TABLET PO PRN ×2 (08:57→22:49)
[2020-08-25] MEDS: ERTAPENEM 1,000 MG in SODIUM CHLORIDE 0.9% 100 ML IV SCH (08:58)
[2020-08-25] MEDS: amLODIPine 10 MG TABLET PO SCH (08:58)
[2020-08-25] MEDS: FOLIC ACID 0.4 MG TABLET PO SCH (08:58)
[2020-08-25] MEDS: MULTIVITAMIN (CENTRUM) TABLET PO SCH (08:58)
[2020-08-25] MEDS: FERROUS SULFATE 325 MG TABLET PO SCH ×2 (08:58→16:22)
[2020-08-25] MEDS: THIAMINE 100 MG TABLET PO SCH (08:58)
[2020-08-25] MEDS: LOSARTAN 50 MG TABLET PO SCH (08:58)
[2020-08-25] MEDS: PANTOPRAZOLE 40 MG TABLET PO SCH (08:59)
[2020-08-25] MEDS: carvediloL 12.5 MG TABLET PO SCH ×2 (08:59→20:19)
[2020-08-25 09:21] LABS: Alanine Aminotransferase 85 U/L (16-61); Albumin 2.8 G/DL (3.4-5.0); Alkaline Phosphatase 139 U/L (45-117); Aspartate Amino Transferase 30 U/L (0-37); Bilirubin,Indirect 0.2 MG/DL (0.0-1.0); Bilirubin,Total < 0.39 MG/DL (0.2-1.0); Total Protein 7.6 G/DL (6.4-8.2)
[2020-08-25] MEDS: metroNIDAZOLE 500 MG TABLET PO SCH (16:22)
[2020-08-25] MEDS: cephALEXin 500 MG CAPSULE PO SCH (16:22)
[2020-08-26 07:11] LABS: Calcium 8.4 MG/DL (8.5-10.1); Osmolality,Calculated 276.8 MOS/KG (273-304); Potassium 3.9 MMOL/L (3.5-5.1)
[2020-08-26] MEDS: LACTATED RINGERS 1,000 ML IV SCH (07:57)
[2020-08-26 08:02] VITALS: BP 161/74
[2020-08-26] MEDS: FERROUS SULFATE 325 MG TABLET PO SCH (08:20)
[2020-08-26] MEDS: MULTIVITAMIN (CENTRUM) TABLET PO SCH (08:20)
[2020-08-26] MEDS: THIAMINE 100 MG TABLET PO SCH (08:20)
[2020-08-26] MEDS: PANTOPRAZOLE 40 MG TABLET PO SCH (08:20)
[2020-08-26] MEDS: amLODIPine 10 MG TABLET PO SCH (08:20)
[2020-08-26] MEDS: carvediloL 12.5 MG TABLET PO SCH (08:20)
[2020-08-26] MEDS: metroNIDAZOLE 500 MG TABLET PO SCH ×2 (08:20→11:05)
[2020-08-26] MEDS: FOLIC ACID 0.4 MG TABLET PO SCH (08:20)
[2020-08-26] MEDS: LOSARTAN 50 MG TABLET PO SCH (08:21)
[2020-08-26] MEDS: cephALEXin 500 MG CAPSULE PO SCH ×2 (08:21→11:05)
== END 2020-08-26 13:36 | disposition home or self-care (01) | DRG 580 ==
LOC: N.ED 09:28 → SUATTDRO 12:37 → N.EDINP 12:37 → N.3E 15:15
PROVIDERS: ADMIT Internal Medicine; ATTEND Internal Medicine